=== PATIENT | male | born 1980 | race Caucasian/White ===

== ENCOUNTER 2017-06-25 09:58 | Emergency (ER) | payer SELFPAY ==
[2017-06-25] MEDS ORDERED: Dexamethasone 10 MG/ML VIAL ONE (10:39)
[2017-06-25 10:52] LABS: #Eosinphils 0.1 thou/uL (0.0-0.7); #Lymphocytes 0.9 thou/uL (1.20-3.40); #Monocytes 0.4 thou/uL (0.11-0.59); #Neutrophils 1.4 thou/uL (1.40-6.50); %Lymphocytes 32.8 % (21.0-51.0); %Monocytes 13.2 % (0.0-10.0); Hemoglobin 16.6 g/dL (14.0-18.0); Mean Corpuscular HGB CONC 34.9 g/dL (32.0-36.0); Mean Corpuscular Hemoglobin 32.2 pg (27.0-31.0); Mean Corpuscular Volume 92.3 fl (80.0-94.0); Mean Platelet Volume 6.7 fL (7.4-10.4); Platelet Count 160 thou/uL (130-400); RBC Distribution Width 11.5 % (11.5-14.5); Red Blood Cell (RBC) Count 5.16 mill/uL (4.70-6.10); White Blood Cell (WBC) Count 2.8 thou/uL (4.8-10.8)
[2017-06-25 11:05] LABS: INR-International Normal Ratio 1.1; Prothrombin Time 14.1 SEC (12.0-14.7)
[2017-06-25 11:15] LABS: ALT (SGPT) 34 U/L (8-55); AST (SGOT) 41 U/L (5-34); Albumin 4.5 g/dL (3.5-5.0); Alkaline Phosphatase 68 U/L (40-150); Anion Gap 19 mmol/L (10-20); BUN (Urea Nitrogen) 6 mg/dL (8.9-20.6); Bilirubin, Total 0.7 mg/dL (0.2-1.2); CK (CPK) 63 U/L (30-200); Calc. Creatinine Clearance 0 mL/min (70-130); Calcium 9.3 mg/dL (7.8-10.44); Carbon Dioxide 21 mmol/L (22-29); Chloride 105 mmol/L (98-107); Estimated GFR-MDRD Greater than 90; Globulin 3.7 g/dL (2.4-3.5); Glucose 95 mg/dL (70-105); Magnesium 2.5 mg/dL (1.6-2.6); Potassium 4.1 mmol/L (3.5-5.1); Protein, Total 8.2 g/dL (6.0-8.3); Sodium 141 mmol/L (136-145)
[2017-06-25 11:19] LABS: Acetaminophen Less than 6.0 mcg/mL (10.0-30.0); Alcohol 350 mg/dL (Less than 10); Salicylate Less than 8.0 mg/dL (15.0-30.0)
[2017-06-25] MEDS ORDERED: Adacel (T-DAP) 0.5 ML VIAL ONE (11:20)
[2017-06-25 11:24] LABS: CKMB 0.6 ng/mL (0-6.6); Troponin I Less than 0.010 ng/mL (< 0.028)
--- NOTE | 2017-06-25 11:39 | RAD ---
PORTABLE CHEST 1 VIEW: Date: 06/25/17 Time: 1058 hours HISTORY: Chest pain. FINDINGS: The heart size is borderline. The lungs are expanded without focal areas of consolidation, pneumothor ax, clara pulmonary edema, or pleural effusions are seen. IMPRESSION: No radiographic evidence of acute cardiopulmonary process. POS: [facility]
[2017-06-25] MEDS ORDERED: Lorazepam 2 MG/ML VIAL ONE ×2 (11:51→14:09)
== END 2017-06-25 14:19 | disposition home or self-care (01) ==
LOC: ERS 09:58
DX: F10.129 Alcohol abuse with intoxication, unspecified (principal); I10 Essential (primary) hypertension; F17.210 Nicotine dependence, cigarettes, uncomplicated
CPT/HCPCS: 36415; 71045; 80053; 80307; 82553; 83605; 83735; 84443; 84484; 85025; 85610; 85730; 90471; 90715; 93005; 96361; 96374; 96376; J1100; J2060; J7620

== ENCOUNTER 2017-06-25 18:08 | Observation (INO) | payer SELFPAY ==
[2017-06-25] MEDS ORDERED: chlordiazePOXIDE HCl 25 MG CAP ONE (18:36)
[2017-06-25] MEDS ORDERED: Lorazepam 2 MG/ML VIAL ONE ×3 (18:58→20:50)
[2017-06-25] MEDS ORDERED: Multivitamins, Adult 10 ML, Thiamine HCl 100 MG, Folic Acid 1 MG in Dextrose 5 %-0.45 %... IV ONE (19:15)
[2017-06-25] MEDS ORDERED: Ondansetron ODT 4 MG TAB ONE (19:41)
[2017-06-25 20:01] LABS: #Eosinphils 0.1 thou/uL (0.0-0.7); #Lymphocytes 0.8 thou/uL (1.20-3.40); #Monocytes 0.3 thou/uL (0.11-0.59); #Neutrophils 1.8 thou/uL (1.40-6.50); %Basophils 1.3 % (0.0-1.0); %Eosinophils 2.2 % (0.0-10.0); %Lymphocytes 26.8 % (21.0-51.0); %Monocytes 10.3 % (0.0-10.0); %Neutrophils 59.5 % (42.0-75.0); Hemoglobin 16.4 g/dL (14.0-18.0); Mean Corpuscular HGB CONC 35.2 g/dL (32.0-36.0); Mean Corpuscular Hemoglobin 32.2 pg (27.0-31.0); Mean Corpuscular Volume 91.6 fl (80.0-94.0); Mean Platelet Volume 6.1 fL (7.4-10.4); Platelet Count 139 thou/uL (130-400); RBC Distribution Width 11.5 % (11.5-14.5); Red Blood Cell (RBC) Count 5.09 mill/uL (4.70-6.10); White Blood Cell (WBC) Count 2.9 thou/uL (4.8-10.8)
[2017-06-25 20:13] LABS: Acetaminophen Less than 6.0 mcg/mL (10.0-30.0); Alcohol 145 mg/dL (Less than 10); Salicylate Less than 8.0 mg/dL (15.0-30.0)
[2017-06-25 20:14] LABS: ALT (SGPT) 30 U/L (8-55); AST (SGOT) 33 U/L (5-34); Albumin 4.4 g/dL (3.5-5.0); Alkaline Phosphatase 66 U/L (40-150); Anion Gap 18 mmol/L (10-20); BUN (Urea Nitrogen) 6 mg/dL (8.9-20.6); Bilirubin, Total 0.8 mg/dL (0.2-1.2); Calc. Creatinine Clearance 0 mL/min (70-130); Carbon Dioxide 22 mmol/L (22-29); Chloride 103 mmol/L (98-107); Estimated GFR-MDRD Greater than 90; Globulin 3.3 g/dL (2.4-3.5); Glucose 92 mg/dL (70-105); Potassium 3.9 mmol/L (3.5-5.1); Protein, Total 7.7 g/dL (6.0-8.3); Sodium 139 mmol/L (136-145)
--- NOTE | 2017-06-25 20:55 | PDOC.FPRHP ---
Addendum entered and electronically signed by Jose Juan Lopez MD 06/26/17 06:27 : BP 136/89 T98.4 P82 02 95% on RA RR 18 Weight 93.984 kg Original Note: - History of Present Illness Chief Complaint: alcohol withdrawl History of Present Illness: 37 yo caucassion male comes in w/ c/c of alcohol withdrawl. Pt recently quit drinking this morning. Pt came in this morning to ER after being intoxicated got a couple doses of ativan and set up a plan for outpatient withdrawl tx. Pt ended up having a few more drinks and not being able to follow through. He thus presents back to the ER in acute alcohol withdrawl. Pt reports to drinking 2L of whiskey a day. Reports that he has been drinking recently and just quit this morning. Pt states he tried quitting 6-7 mo ago. During that time he went into DT ant had seizures then. Pt reports having fever/chills. Reports being tremulous. Is having nausea and diarrhea. Pt very uncomfortable at this time. Pt recently had cut ramirez on his arms. They are dressed at this time. Denies any chest pain or SOB. - Allergies/Adverse Reactions Allergies Allergy/AdvReac Type Severity Reaction Status Date / Time No Known Allergies Allergy Verified 06/25/17 22:54 - Home Medications Medication Instructions Recorded Confirmed Type Lisinopril [Prinivil] 10 mg PO DAILY 06/25/17 06/25/17 History - History PMHx: HTN PSHx: Kidney Stone FHx: Noncontributory Social: Occasional Smoker, hasn't smoked in awhile. Drinks 2L of whiskey daily, quit this morning. Denies illicit drug use - Review of Systems General: reports: fever/chills, night sweats. denies: weight/appetite/sleep changes, fatigue Eyes: denies: eye pain, vision changes ENT: denies: nasal congestion, rhinorrhea Respiratory: denies: cough, congestion, shortness of breath, exercise intolerance Cardiovascular: denies: chest pain, palpitation, edema, paroxysmal nocturnal dyspnea, orthopnea Gastrointestinal: reports: nausea, diarrhea. denies: vomiting, constipation, abdominal pain, GI bleeding Genitourinary: denies: incontinence, dysuria, polyuria, discharge Skin: denies: rashes, lesions, jaundice, itching Musculoskeletal: denies: tenderness, stiffness, swelling, arthritis/arthralgias , other Neurological: reports: other (Is having tremors at this time) Psychological: reports: depression, other (pt denied any suicidal ideation at this time.). denies: anxiety - Vital signs BP: [] HR: [] RR: [] Tmax: [] Pox: []% on [] Wt: [] - Physical Exam Constitutional: NAD, awake, alert and oriented, well developed HEENT: normocephalic and atraumatic, conjunctiva clear, no scleral icterus, grossly normal hearing, normal nasal mucosa Neck: supple, no LAD, no JVD, no thyromegaly, no bruits Chest: no-tender to palpation, no lesions Heart: RRR, normal S1/S2, no murmurs/rubs/gallops, pulses present Lungs: CTAB, no respiratory distress, good air movement, no rales/rhonchi, no wheezing Abdomen: soft, non-tender -Abdomen: bowel sounds diminished Musculoskeletal: normal structure, normal tone, ROM grossly normal Neurological: no focal deficit, other (Pt having diffuse tremors. Hands held out , significant tremors noted) Skin: no rash/lesions, good turgor, capillary refill <2 seconds -Skin: cuts on arm dressed at this time. No sign of bleeding or drainage noted Psychiatric: good judgment and insight, intact recent and remote memory -Psychiatric: Pt uncomfortable due to withdrawl FMR H&P: Results - Labs Result Diagrams: 06/26/17 04:16 06/26/17 04:16 Lab results: WBC 2.9 thou/uL (4.8-10.8) L 06/25/17 19:50 Hgb 16.4 g/dL (14.0-18.0) 06/25/17 19:50 Hct 46.6 % (42.0-52.0) 06/25/17 19:50 MCV 91.6 fl (80.0-94.0) 06/25/17 19:50 Plt Count 139 thou/uL (130-400) 06/25/17 19:50 Neutrophils % 59.5 % (42.0-75.0) 06/25/17 19:50 Sodium 139 mmol/L (136-145) 06/25/17 19:50 Potassium 3.9 mmol/L (3.5-5.1) 06/25/17 19:50 Chloride 103 mmol/L (98-107) 06/25/17 19:50 Carbon Dioxide 22 mmol/L (22-29) 06/25/17 19:50 BUN 6 mg/dL (8.9-20.6) L 06/25/17 19:50 Creatinine 0.72 mg/dL (0.6-1.3) 06/25/17 19:50 Glucose 92 mg/dL (70-105) 06/25/17 19:50 Calcium 9.0 mg/dL (7.8-10.44) 06/25/17 19:50 Total Bilirubin 0.8 mg/dL (0.2-1.2) 06/25/17 19:50 AST 33 U/L (5-34) 06/25/17 19:50 ALT 30 U/L (8-55) 06/25/17 19:50 Alkaline Phosphatase 66 U/L (40-150) 06/25/17 19:50 Serum Total Protein 7.7 g/dL (6.0-8.3) 06/25/17 19:50 Albumin 4.4 g/dL (3.5-5.0) 06/25/17 19:50 - Radiology Interpretation Chest x-ray Status: image reviewed by me, report reviewed by me (NO acute cardiopulmonary process) FMR H&P: A/P - Problem List (1) Alcohol withdrawal Current Visit: Yes Status: Acute Code(s): F10.239 - ALCOHOL DEPENDENCE WITH WITHDRAWAL, UNSPECIFIED (2) Hypertension Current Visit: Yes Status: Acute Code(s): I10 - ESSENTIAL (PRIMARY) HYPERTENSION - Plan Acute Alcohol Withdrawl -Pt only quit drinking this morning. Is a little early for DT's. Been tx with ativan at ER this morning and now ativan in ER already this evening -ASE protocol initiated. Ativan PRN. Pt having tremors at this time. -Pt has hx of alcohol withdrawl seizures, px Librium at this time q6hrs for ppx -Banana bag being given in ER. continue hydration with NS@100 mls/hr. -Replace Thiamine, Folic acid and multivitamin orally. -Will recheck CMP in AM, Mg, P and replace electrolytes as needed. -Admit to tele for obs HTN -continue home medication Alcohol Abuse -counseled on cessation. -Will consult MHMR when Medically cleared. FMR H&P: Upper Level - Pertinent history 37 yo M w/ PMH of alcohol dependence presents to ED for second time today. Came in this morning and prescribed outpatient treatment and he went to an outpatient treatment center and voluntarily discharged himself as it "wasn't for him" and someone at the facility drove him back to the ED. Last drink was 2 glasses of whiskey this AM, he normally drinks 2 L daily. ED 5 mg ativan, librium, zofran - Pertinent findings General: AOx4, does not appear in distress at rest when not conversing, but as we talked more his tremors became more prominent HEENT: EOMI, PERRLA, oropharynx patent, no erythema, no exudate Cardiac: RRR Lungs: CTA Abdomen: no TTP, normactive bs Psyc: appropriate - Plan Date/Time: 06/25/172052 1. alcohol withdrawal- the timeline is somewhat odd as his last drink was this morning, he can be still at rest, but has tremors with movement, given hx of seizure from previous alcohol withdrawal in [place] about 6 mo ago, will admit to tele, ASE scoring and medication, will schedule librium and give breakthrough valium as outlined on the protocol for CIWA scores > 10. Not hallucinating, not fevering, no tachycardia or diaphoresis, actually looks comfortable so I would not call this DTs I, Tina Marcos, have evaluated this patient and agree with findings/plan as outlined by [employer] intern resident. Pertinent changes/additions are listed here. Attending Addendum - Attending Addendum Date/Time: 06/26/17 1038 I personally evaluated the patient and discussed the management with Dr. Mitchell I agree with the History, Examination, Assessment and Plan documented above with any addition or exceptions noted below. Lauri Moreno is approximately 28 hours since last drink. VSS with normal physical exam. Patient has history of DTs. Patient requested to be discharged today to go back to [place] with his mother, where he would stay and be monitored. Recommend that patient stay for seizure precautions and close monitoring overnight. Will continue to provide education and have case management help patient with outpatient options for rehab.
[2017-06-25] MEDS ORDERED: Acetaminophen 325 MG TAB PO PRN (22:37)
[2017-06-25] MEDS ORDERED: Calcium Carbonate 500 MG ChewTAB PO PRN (22:37)
[2017-06-25] MEDS ORDERED: Dextrose 5% in Water 1,000 ML IV PRN (22:37)
[2017-06-25] MEDS ORDERED: HumaLOG 300 UNITS/3 ML VIAL SC PRN (22:37)
[2017-06-25] MEDS ORDERED: Ondansetron HCl/PF 4 MG/2 ML Vial IVP PRN (22:37)
[2017-06-25] MEDS ORDERED: Ondansetron ODT 4 MG TAB PO PRN (22:37)
[2017-06-25] MEDS ORDERED: Dextrose 50% Abboject 50 ML SYRINGE SLOW IVP PRN (22:37)
[2017-06-25] MEDS ORDERED: Acetaminophen 650 MG Suppository PR PRN (22:37)
[2017-06-25] MEDS ORDERED: Diazepam 5 MG TAB PO PRN (22:45)
[2017-06-25] MEDS ORDERED: Diazepam 5 MG TAB PO SCH (23:00)
[2017-06-25] MEDS ORDERED: Thiamine HCl 200 MG/2 ML VIAL IM SCH (23:00)
[2017-06-26 00:09] LABS: HIV (1/2) Antibody/Antigen Non-Reactive (NonReactive); HIV 1/2 INDEX 0.06 S/CO (<1.00)
[2017-06-26] MEDS: chlordiazePOXIDE HCl 25 MG CAP PO SCH ×5 (00:27→22:56)
[2017-06-26 01:26] VITALS: BMI 28.0
[2017-06-26] MEDS ORDERED: Diazepam 5 MG TAB PO PRN (04:00)
[2017-06-26 04:36] LABS: #Eosinphils 0.1 thou/uL (0.0-0.7); #Lymphocytes 0.6 thou/uL (1.20-3.40); #Monocytes 0.3 thou/uL (0.11-0.59); #Neutrophils 1.2 thou/uL (1.40-6.50); %Basophils 0.8 % (0.0-1.0); %Eosinophils 4.9 % (0.0-10.0); %Lymphocytes 25.8 % (21.0-51.0); %Monocytes 13.9 % (0.0-10.0); %Neutrophils 54.7 % (42.0-75.0); Hemoglobin 14.5 g/dL (14.0-18.0); Mean Corpuscular HGB CONC 35.5 g/dL (32.0-36.0); Mean Corpuscular Hemoglobin 32.6 pg (27.0-31.0); Mean Corpuscular Volume 91.7 fl (80.0-94.0); Mean Platelet Volume 6.5 fL (7.4-10.4); Platelet Count 105 thou/uL (130-400); RBC Distribution Width 11.4 % (11.5-14.5); Red Blood Cell (RBC) Count 4.46 mill/uL (4.70-6.10); White Blood Cell (WBC) Count 2.3 thou/uL (4.8-10.8)
[2017-06-26 04:49] LABS: ALT (SGPT) 24 U/L (8-55); AST (SGOT) 29 U/L (5-34); Albumin 3.8 g/dL (3.5-5.0); Alkaline Phosphatase 57 U/L (40-150); Anion Gap 12 mmol/L (10-20); BUN (Urea Nitrogen) 7 mg/dL (8.9-20.6); Bilirubin, Total 1.2 mg/dL (0.2-1.2); Calc. Creatinine Clearance 185 mL/min (70-130); Calcium 8.5 mg/dL (7.8-10.44); Carbon Dioxide 26 mmol/L (22-29); Chloride 101 mmol/L (98-107); Estimated GFR-MDRD Greater than 90; Globulin 2.7 g/dL (2.4-3.5); Glucose 104 mg/dL (70-105); Magnesium 1.9 mg/dL (1.6-2.6); Phosphorus 3.2 mg/dL (2.3-4.7); Potassium 3.7 mmol/L (3.5-5.1); Protein, Total 6.5 g/dL (6.0-8.3); Sodium 135 mmol/L (136-145)
[2017-06-26] MEDS: Sodium Chloride 0.9% 1,000 ML IV SCH ×3 (05:53→17:50)
[2017-06-26] MEDS: Famotidine 20 MG TAB PO SCH ×2 (09:00→20:12)
[2017-06-26] MEDS: Magnesium Oxide 400 MG TAB PO SCH (09:01)
[2017-06-26] MEDS: Lisinopril 10 MG TAB PO SCH (09:01)
[2017-06-26] MEDS: Multivit, Therapeutic 1 TAB PO SCH (09:01)
[2017-06-26] MEDS: Folic Acid 1 MG TAB PO SCH (09:01)
[2017-06-27 03:52] VITALS: TEMP 97.9
[2017-06-27] MEDS: chlordiazePOXIDE HCl 25 MG CAP PO SCH (05:33)
--- NOTE | 2017-06-27 05:55 | PDOC.FM ---
- Subjective Subjective: Lauri Moreno seen at bedside this morning. He did well overnight. He has no complaints. States that he is feeling well and he would like to go home today. States that his mother will be taking him to [place] and she will help monitor him. Endorses some tremors, but less than admission. Denies any headaches, vision changes, chest pain, dyspnea, n/v, abdominal pain. - Objective MAR Reviewed: Yes Vital Signs & Weight: Vital Signs (12 hours) Temp Pulse Resp BP BP Pulse Ox 06/27/17 03:40 97.9 F 78 16 119/71 119/71 96 06/26/17 23:07 98.1 F 73 16 139/94 H 93 L 06/26/17 22:54 139/94 H 06/26/17 20:10 98.3 F 93 18 144/82 H 06/26/17 19:33 98.3 F 93 18 144/82 H 95 Weight Weight 93.984 kg I&O: 06/25/17 06/26/17 06/27/17 06:59 06:59 06:59 Intake Total 2090 3737 Output Total 2800 Balance 2089 937 Result Diagrams: 06/27/17 06:17 06/27/17 06:17 <Rene Mitchell - Last Filed: 06/27/17 07:37> - Objective Vital Signs & Weight: Vital Signs (12 hours) Temp Pulse Resp BP BP Pulse Ox 06/27/17 07:31 97.9 F 75 16 140/91 H 94 L 06/27/17 03:40 97.9 F 78 16 119/71 119/71 96 06/26/17 23:07 98.1 F 73 16 139/94 H 93 L 06/26/17 22:54 139/94 H Weight Weight 207 lb 3.2 oz I&O: 06/26/17 06/27/17 06/28/17 06:59 06:59 06:59 Intake Total 0 3737 Output Total 2800 Balance 209 937 Result Diagrams: 06/27/17 06:17 06/27/17 06:17 <Rei Bray - Last Filed: 06/27/17 10:06> Phys Exam - Physical Examination Constitutional: NAD HEENT: moist MMs, sclera anicteric Neck: no JVD, supple, full ROM Respiratory: no wheezing, no rales, no rhonchi, clear to auscultation bilateral Cardiovascular: RRR, no significant murmur, no rub Gastrointestinal: soft, non-tender, no distention Musculoskeletal: no edema, pulses present Neurological: non-focal, normal sensation, moves all 4 limbs Psychiatric: normal affect, A&O x 3 Skin: no rash, normal turgor <Rene Mitchell - Last Filed: 06/27/17 07:37> Dx/Plan (1) Alcohol withdrawal Code(s): F10.239 - ALCOHOL DEPENDENCE WITH WITHDRAWAL, UNSPECIFIED Status: Acute (2) Hypertension Code(s): I10 - ESSENTIAL (PRIMARY) HYPERTENSION Status: Acute - Plan Plan: Acute Alcohol Withdrawl -Pt only quit drinking this morning. Is a little early for DT's. Been tx with ativan at ER this morning and now ativan in ER already this evening -ASE protocol. Ativan PRN. Pt had tremors at time of admission -Pt has hx of alcohol withdrawl seizures -Discontinued q6h librium -Banana bag being given in ER. continue hydration with NS@100 mls/hr. -Replace Thiamine, Folic acid and multivitamin orally. -Will recheck CMP in AM, Mg, P and replace electrolytes as needed. -Admit to tele for obs -continue to monitor, poss discharge in afternoon HTN -continue home medication Alcohol Abuse -counseled on cessation. -Will consult MHMR when Medically cleared. <Rene Mitchell - Last Filed: 06/27/17 07:37> (1) Alcohol withdrawal Code(s): F10.239 - ALCOHOL DEPENDENCE WITH WITHDRAWAL, UNSPECIFIED Status: Acute (2) Hypertension Code(s): I10 - ESSENTIAL (PRIMARY) HYPERTENSION Status: Acute <Rei Bray - Last Filed: 06/27/17 10:06> Attending Addendum - Attending Addendum Date/Time: 06/27/17 1004 I personally evaluated the patient and discussed the management with Dr. Mitchell I agree with the History, Examination, Assessment and Plan documented above with any addition or exceptions noted below. Lauri Moreno is a 37 year old male admitted for alcohol withdrawal. He has requested to go home today so his mother can take him back to [place] where he lives so he can resume attending AA, he has a sponsor in [place]. He has been asymptomatic for over 24 hours. ASE scores have been 4-6. Vitals have remained stable. Will discharge with Librium taper. Strongly advised patient to follow up with PCP within a week, or go to the ER if symptoms occur prior to follow up appointment. <Rei Bray - Last Filed: 06/27/17 10:06>
[2017-06-27 06:37] LABS: Anion Gap 11 mmol/L (10-20); BUN (Urea Nitrogen) 6 mg/dL (8.9-20.6); Calc. Creatinine Clearance 162 mL/min (70-130); Calcium 9.1 mg/dL (7.8-10.44); Carbon Dioxide 26 mmol/L (22-29); Chloride 103 mmol/L (98-107); Estimated GFR-MDRD Greater than 90; Glucose 96 mg/dL (70-105); Potassium 4.2 mmol/L (3.5-5.1); Sodium 136 mmol/L (136-145)
[2017-06-27 07:08] LABS: Eosinophils 2 % (0-10); Hemoglobin 15.3 g/dL (14.0-18.0); Lymphocytes 26 % (21-51); MDiff Complete? YES; Mean Corpuscular HGB CONC 34.8 g/dL (32.0-36.0); Mean Corpuscular Volume 91.9 fl (80.0-94.0); Mean Platelet Volume 6.4 fL (7.4-10.4); Monocytes 6 % (0-10); Neutrophil 66 % (42-75); PLT Morphology Comment Appears Decreased; Platelet Count 110 thou/uL (130-400); RBC Distribution Width 11.4 % (11.5-14.5); RBC Morphology Normal; Red Blood Cell (RBC) Count 4.76 mill/uL (4.70-6.10); White Blood Cell (WBC) Count 2.4 thou/uL (4.8-10.8)
[2017-06-27 08:01] VITALS: BP 140/91
[2017-06-27] MEDS: Folic Acid 1 MG TAB PO SCH (08:42)
[2017-06-27] MEDS: Magnesium Oxide 400 MG TAB PO SCH (08:42)
[2017-06-27] MEDS: Famotidine 20 MG TAB PO SCH (08:42)
[2017-06-27] MEDS: Multivit, Therapeutic 1 TAB PO SCH (08:42)
[2017-06-27] MEDS: Lisinopril 10 MG TAB PO SCH (08:42)
--- NOTE | 2017-06-27 19:08 | DIS-2 ---
DATE OF ADMISSION: 06/25/2017 DATE OF DISCHARGE: 06/27/2017 RESIDENT: Rene Mitchell MD ADMITTING ATTENDING: Rei Bray M.D. DISCHARGE ATTENDING: Rei Bray M.D. CONSULTATIONS: None. PROCEDURES: None. ADMISSION DIAGNOSIS: Acute alcohol withdrawal. DISCHARGE DIAGNOSES: Acute alcohol withdrawal and hypertension. DISCHARGE MEDICATIONS: 1. Lisinopril 10 mg p.o. daily. 2. Chlordiazepoxide hydrochloride 25 mg p.o. q.6 hours. 3. Multivitamin 1 tablet p.o. daily. HISTORY OF PRESENT ILLNESS AND HOSPITAL COURSE: Lauri Moreno is a 37-year-old male with a history o f alcohol abuse, who comes in with chief complaint of alcohol withdrawal. The patient quit smoking t he morning prior to arrival to the ED. The patient came in this morning to the ED after being intoxi cated, got a couple doses of Ativan and a set up plan for outpatient withdrawal treatment. The patie nt is not being able to follow through and developed tremors outpatient, so he returned to the ER for acute alcohol withdrawal. The patient reports drinking 2 liters of whiskey a day. Reportedly, he h ad been drinking recently and decided to quit this morning. The patient states that he had tried to quit 6-7 months ago. During that time, he went into DT and had seizures. He stated that he was curr ently having fevers and chills and was tremulous and had nausea and diarrhea. The patient was placed on telemetry/observation for acute alcohol withdrawal. He was started on Librium taper. ORA protoc ol was initiated and Ativan p.r.n. Banana bag was given in the ER. IV fluids were continued through his admission. Thiamine, folic acid, and multivitamins were also given. The patient's admission wa s unremarkable. He stated that his symptoms had resolved not long after being brought to the floor. He requested on first day of admission to be discharged, saying that he would like to go back to [facility] to where he would stay with his mother and be watched closely. The patient was convinced to faustino in in the hospital for another night for close monitoring. The patient agreed to that plan. The roberto tompkins had an uneventful last night of his admission and was cleared for discharge on 06/27/2017 with i nstructions to follow up with primary care provider within the next week. He was provided with chlor diazepoxide 25 mg q.6 hours for 2 more days and repeatedly given instruction that if he develops any symptoms to go to the ER. The patient understood and was in agreement with the plan. He appreciated the care. His vitals remained stable throughout the entirety of his admission. His labs were edgardo l. DISPOSITION: Stable. The patient should do well if he continues his Librium taper and follows up [facility] primary care provider within the next week. Also, if he limits himself to an environment where he is not attempted to drink alcohol and if he continues AA and meets with a sponsor, he should have mo re success. DISCHARGE INSTRUCTIONS: 1. Location: Home. 2. Diet: No restrictions. 3. Activity: As tolerated. FOLLOWUP: Follow up with primary care provider within a week and continue going to and working [facility] sponsor.
== END 2017-06-27 10:45 | disposition home or self-care (01) ==
LOC: ERS 18:08 → 2SW 22:34
PROVIDERS: ADMIT Family Medicine; ATTEND Family Medicine
DX: F10.239 Alcohol dependence with withdrawal, unspecified (principal); I10 Essential (primary) hypertension; Z87.891 Personal history of nicotine dependence; Z79.899 Other long term (current) drug therapy
CPT/HCPCS: 36415; 36416; 80048; 80053; 80307; 83735; 84100; 84443; 85025; 87389; 93005; 96361; 96365; 96366; 96367; 96372; 96375; 96376; A4216; G0378; J2060; J3411; J3475; J7042; J7050; Q0162

== ENCOUNTER 2017-11-19 09:55 | Emergency (ER) | payer SELFPAY ==
[2017-11-19 10:31] LABS: #Lymphocytes 0.6 thou/uL (1.20-3.40); #Monocytes 0.3 thou/uL (0.11-0.59); #Neutrophils 1.9 thou/uL (1.40-6.50); %Basophils 0.5 % (0.0-1.0); %Lymphocytes 21.5 % (21.0-51.0); %Neutrophils 67.9 % (42.0-75.0); Hemoglobin 15.7 g/dL (14.0-18.0); Mean Corpuscular HGB CONC 34.4 g/dL (32.0-36.0); Mean Corpuscular Hemoglobin 31.4 pg (27.0-31.0); Mean Corpuscular Volume 91.2 fL (78.0-98.0); Mean Platelet Volume 6.1 fL (7.4-10.4); Platelet Count 148 thou/uL (130-400); RBC Distribution Width 11.5 % (11.5-14.5); Red Blood Cell (RBC) Count 5.01 mill/uL (4.70-6.10); White Blood Cell (WBC) Count 2.9 thou/uL (4.8-10.8)
[2017-11-19] MEDS ORDERED: Lorazepam 2 MG/ML VIAL ONE ×3 (10:31→12:35)
[2017-11-19 10:47] LABS: PTT 26.8 SEC (22.9-36.1); Prothrombin Time 13.3 SEC (12.0-14.7)
[2017-11-19 10:57] LABS: ALT (SGPT) 27 U/L (8-55); AST (SGOT) 38 U/L (5-34); Albumin 4.8 g/dL (3.5-5.0); Alcohol 161 mg/dL (Less than 10); Alkaline Phosphatase 83 U/L (40-150); Anion Gap 16 mmol/L (10-20); BUN (Urea Nitrogen) 9 mg/dL (8.9-20.6); Bilirubin, Total 0.6 mg/dL (0.2-1.2); Calc. Creatinine Clearance 0 mL/min (70-130); Calcium 9.4 mg/dL (7.8-10.44); Carbon Dioxide 25 mmol/L (22-29); Chloride 101 mmol/L (98-107); Estimated GFR-MDRD Greater than 90; Globulin 3.5 g/dL (2.4-3.5); Glucose 100 mg/dL (70-105); Lipase 104 U/L (8-78); Magnesium 1.8 mg/dL (1.6-2.6); Protein, Total 8.3 g/dL (6.0-8.3); Sodium 138 mmol/L (136-145)
== END 2017-11-19 13:03 | disposition home or self-care (01) ==
LOC: ERS 09:55
DX: F10.239 Alcohol dependence with withdrawal, unspecified (principal); I10 Essential (primary) hypertension; F17.210 Nicotine dependence, cigarettes, uncomplicated; Z79.899 Other long term (current) drug therapy
CPT/HCPCS: 36415; 80053; 80307; 83690; 83735; 85025; 85610; 85730; 93005; 94760; 96361; 96374; 96376; J2060